=== PATIENT | female | born 1990 | race Caucasian/White ===

== ENCOUNTER 2016-06-06 13:34 | Outpatient (CLI) | payer MEDICAID | END 2016-06-06 13:35 | disposition home or self-care (01) | DX: Z20.2 Contact with and (suspected) exposure to infections with a predominantly sexual mode of transmission (principal) ==

== ENCOUNTER 2016-06-09 12:15 | Outpatient (CLI) | payer MEDICAID | END 2016-06-09 12:16 | disposition home or self-care (01) | DX: Z20.2 Contact with and (suspected) exposure to infections with a predominantly sexual mode of transmission (principal) ==

== ENCOUNTER 2016-11-15 05:43 | Emergency (ER) | payer MEDICAID ==
[2016-11-15 05:53] VITALS: BP 118/70
--- NOTE | 2016-11-15 06:46 | ED Physician Documentation ---
PD HPI FEMALE - Stated complaint Stated Complaint: RECTAL PAIN - Chief complaint Chief Complaint: General - History obtained from History obtained from: Patient - History of Present Illness Timing - onset: How many days ago (2) Timing - details: Gradual onset, Still present Associated symptoms: Other (rectal pain, rectal itching) Similar symptoms before: Has not had sx before Recently seen: Not recently seen - Additional information Additional information: Patient is a 26 year old female with no significant past medical history who is presenting to the emergency department for rectal pain and itching. Patient states that it has been going on for the last few days. Patient also reports that she has had some intermittent diarrhea with it. Patient denies any anal intercourse or anal discharge. Review of Systems Constitutional: denies: Fever, Chills Eyes: reports: Reviewed and negative Ears: reports: Reviewed and negative Nose: reports: Reviewed and negative Throat: reports: Reviewed and negative Cardiac: denies: Chest pain / pressure GI: reports: Diarrhea, Other (rectal pain). denies: Abdominal Pain, Nausea, Vomiting, Constipation : denies: Dysuria, Frequency, Hesitancy Skin: denies: Rash, Lesions Musculoskeletal: denies: Neck pain, Back pain, Extremity pain Neurologic: denies: Generalized weakness, Focal weakness Immunocompromised: denies: Immunocompromised PD PAST MEDICAL HISTORY - Past Medical History Past Medical History: Yes Cardiovascular: None Respiratory: Asthma Neuro: None Endocrine/Autoimmune: None GI: None [employer]OPS: None : None HEENT: None Psych: Depression Musculoskeletal: None Derm: None - Past Surgical History Past Surgical History: No - Present Medications Home Medications: Ambulatory Orders Medication Instructions Recorded Confirmed Control 01/05/15 01/05/15 Amoxicillin 500 mg PO TID 10 Days capsule 06/23/15 Hydroxzine 06/23/15 Melatonin 06/23/15 predniSONE [Deltasone] 40 mg PO DAILY 4 Days tablet 07/01/15 Mebendazole [Emverm] 100 mg PO DAILY #2 tab.chew 11/15/16 - Allergies Allergies/Adverse Reactions: Allergies Allergy/AdvReac Type Severity Reaction Status Date / Time amoxicillin Allergy Rash Verified 11/15/16 05:52 - Social History Does the pt smoke?: Yes Smoking Status: Current every day smoker Does the pt drink ETOH?: Yes Does the pt have substance abuse?: Yes - Immunizations Immunizations are current?: Yes - POLST Patient has POLST: No PD ED PE NORMAL - Vitals Vital signs reviewed: Yes - General General: Alert and oriented X 3, No acute distress - HEENT HEENT: Atraumatic, PERRL, Pharynx benign - Neck Neck: Supple, no meningeal sign, No JVD - Cardiac Cardiac: RRR, No murmur - Respiratory Respiratory: No respiratory distress - Abdomen Abdomen: Soft, Non tender, Non distended, Other (normal rectal exam) - Derm Derm: Normal color, Warm and dry, No rash - Extremities Extremities: No deformity - Neuro Neuro: Alert and oriented X 3, No motor deficit, No sensory deficit - Psych Psych: Normal mood, Normal affect Results - Vitals Vitals: Vital Signs - 24 hr 11/15/16 11/15/16 05:50 06:51 Temperature 36.6 C Heart Rate 70 70 Respiratory 16 16 Rate Blood Pressure 118/70 O2 Saturation 100 99 Oxygen O2 Source Room air PD MEDICAL DECISION MAKING - ED course Complexity details: reviewed old records, re-evaluated patient, considered differential, d/w patient ED course: Patient was seen and examined at bedside. Patient was well appearing and in no acute distress. Patient's physical was within normal limits. there were no worms appreciated at this time, but patient was covered. Patient required no further work up and was stable for discharge with outpatient follow up. Departure - Departure Disposition: 01 Home, Self Care Clinical Impression: Anal or rectal pain Condition: Good Instructions: ED Enterobiasis Follow-Up: Codi Sinclair ARNP [Primary Care Provider] - Within 1 week Prescriptions: Mebendazole [Emverm] 100 mg PO DAILY #2 tab.chew Comments: Your exam was normal today. No hemorroids were appreciated but you might have irritation from frequent trips to the bathroom. I am also giving you a prescription for pinworms which only come out at night. You will take the first dose today, and the second dose in two weeks. You should follow up with your pmd if your symptoms persist. Discharge Date/Time: 11/15/16 06:52
== END 2016-11-15 06:52 | disposition home or self-care (01) ==
LOC: ED 05:43
DX: K62.89 Other specified diseases of anus and rectum (principal); L29.0 Pruritus ani; F17.200 Nicotine dependence, unspecified, uncomplicated
CPT/HCPCS: 99283

== ENCOUNTER 2017-01-20 15:07 | Outpatient (CLI) | payer MEDICAID ==
[2017-01-21 11:02] LABS: TEST RESULT REPORT
== END 2017-01-20 15:08 | disposition home or self-care (01) ==
LOC: LAB.N 15:07
PROVIDERS: ATTEND Nurse Practitioner Gerontology
DX: N89.8 Other specified noninflammatory disorders of vagina (principal)
CPT/HCPCS: 36415; 81599; 86592; 87389; 87491; 87591

== ENCOUNTER 2017-03-22 12:47 | Emergency (ER) | payer MEDICAID ==
[2017-03-22] MEDS ORDERED: LIDOCAINE PATCH 5% TOP STA (13:20)
[2017-03-22] MEDS ORDERED: guaiFENesin/DEXTROMETHORPHAN 10 ML UDC PO STA (13:31)
--- NOTE | 2017-03-22 13:55 | ED Physician Documentation ---
History of Present Illness - Stated complaint Stated Complaint: L RIB PX - Chief complaint Chief Complaint: General - Additonal information Additional information: hx from pt 26 y/o denies preg cough for a few days no sore l ribs no fever body aches NVD no leg swelling no travel Review of Systems Constitutional: denies: Fever, Chills, Myalgias Cardiac: reports: Chest pain / pressure Respiratory: reports: Cough GI: denies: Vomiting, Diarrhea : denies: Now EGA Musculoskeletal: denies: Extremity swelling Endocrine: denies: Easy bruising / bleeding Immunocompromised: denies: Immunocompromised PD PAST MEDICAL HISTORY - Past Medical History Past Medical History: Yes Cardiovascular: None Respiratory: Asthma Neuro: None Endocrine/Autoimmune: None 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 : None HEENT: None Psych: Depression Musculoskeletal: None Derm: None - Past Surgical History Past Surgical History: No - Present Medications Home Medications: Ambulatory Orders Medication Instructions Recorded Confirmed Citalopram [CeleXA] 10 mg PO ONCE 12/15/16 03/22/17 buPROPion [Wellbutrin Sr] 100 mg PO BID 12/15/16 12/15/16 Benzonatate [Tessalon] 100 mg PO TID PRN #20 capsule 03/22/17 Etonogestrel [Nexplanon] 68 mg 03/22/17 Ibuprofen [Motrin] 400 mg PO Q6H PRN #20 tablet 03/22/17 Lidocaine Patch 5% [Lidoderm Patch] 1 each TOP DAILY PRN #10 patch 03/22/17 guaiFENesin/DEXTROMETHORPHAN 10 ml PO Q6H PRN #120 ml 03/22/17 [Robitussin Dm] hydrOXYzine HCl [Hydroxyzine HCl] 10 mg PO DAILY PM 03/22/17 03/22/17 - Allergies Allergies/Adverse Reactions: Allergies Allergy/AdvReac Type Severity Reaction Status Date / Time amoxicillin Allergy Rash Verified 03/22/17 13:02 - Social History Does the pt smoke?: Yes Smoking Status: Current every day smoker Does the pt drink ETOH?: Yes Does the pt have substance abuse?: Yes - Immunizations Immunizations are current?: Yes - POLST Patient has POLST: No PD ED PE NORMAL - Vitals Vital signs reviewed: Yes - Neck Neck: Supple, no meningeal sign - Cardiac Cardiac: RRR - Respiratory Respiratory: No respiratory distress, Clear bilaterally, Other (TTP lateral low L ribs) - Abdomen Abdomen: Soft, Non tender - Extremities Extremities: No edema, No calf tenderness / cord - Neuro Neuro: Alert and oriented X 3 Results - Vitals Vitals: Vital Signs - 24 hr 03/22/17 03/22/17 13:00 15:00 Temperature 37.2 C Heart Rate 101 H 68 Respiratory 18 16 Rate Blood Pressure 106/67 93/56 L O2 Saturation 98 100 Oxygen O2 Source Room air - Labs Labs: Laboratory Tests 03/22/17 03/22/17 14:38 14:38 D-Dimer < 200.0 L Creatinine 0.6 Estimated GFR (MDRD) 121 - Rads (name of study) CXR Radiology: See rad report (normal) PD MEDICAL DECISION MAKING - ED course ED course: CXR neg prob just chest wall strain from couhg but smoker on nexplanon and slightly tachy - will have to consider PE - given that she also has cough and cold sx and thus a resasonable al dx feel if d dimer neg can consider PE ruled out - will get d dimer Departure - Departure Disposition: 01 Home, Self Care Clinical Impression: Chest wall pain URI (upper respiratory infection) Qualifiers: URI type: unspecified viral URI Qualified Code(s): J06.9 - Acute upper respiratory infection, unspecified Condition: Good Instructions: ED Strain Chest Wall, ED Upper Resp Infec No Abx Tx Follow-Up: Codi Sinclair, PLUSH BRUSHER [Primary Care Provider] - Prescriptions: Benzonatate [Tessalon] 100 mg PO TID PRN #20 capsule PRN Reason: to ease cough guaiFENesin/DEXTROMETHORPHAN [Robitussin Dm] 10 ml PO Q6H PRN #120 ml PRN Reason: Cough Ibuprofen [Motrin] 400 mg PO Q6H PRN #20 tablet PRN Reason: Pain Lidocaine Patch 5% [Lidoderm Patch] 1 each TOP DAILY PRN #10 patch PRN Reason: Pain Comments: The xray did not show pneumonia, a collapsed lung, or any broken ribs The blood tests do not indicate a blood clot in your lungs. I think you have a viral respiratory infection and have strained your chest wall I think it is safe for you to go home. I have prescribed lidocaine patches and motrin for the pain and also medications to ease the cough so you do not aggravate the pain Please stop smoking Forms: Activity restrictions
[2017-03-22] MEDS ORDERED: ACETAMINOPHEN 325 MG TABLET PO STA (14:21)
[2017-03-22] MEDS ORDERED: IBUPROFEN 400 MG TABLET PO STA (14:21)
--- NOTE | 2017-03-22 14:29 | XRAY Report ---
EXAM: CHEST RADIOGRAPHY EXAM DATE: 03/22/2017 02:08 PM. CLINICAL HISTORY: Cough left chest pain. COMPARISON: 01/05/2015. TECHNIQUE: 2 views. FINDINGS: Lungs/Pleura: No focal opacities evident. No pleural effusion. No pneumothorax. Normal volumes. Mediastinum: Heart and mediastinal contours are normal. Other: None. IMPRESSION: Normal 2-view chest radiography. [facility] Referring Provider Line: [phone] SITE ID: [id number]
--- NOTE | 2017-03-22 14:29 | XRAY Preliminary Report ---
Exam: XR CHEST 2 VIEW X-RAY IMPRESSION: Normal 2-view chest radiography. [facility] SITE ID: [id number]
[2017-03-22 14:56] LABS: CREATININE 0.6 mg/dL (0.4-1.0)
[2017-03-22 15:04] VITALS: BP 93/56
[2017-03-22 15:15] LABS: HCG,QUALITATIVE BLOOD NEGATIVE
== END 2017-03-22 15:29 | disposition home or self-care (01) ==
LOC: ED 12:47
DX: J06.9 Acute upper respiratory infection, unspecified (principal); B97.89 Other viral agents as the cause of diseases classified elsewhere; R07.89 Other chest pain; J45.909 Unspecified asthma, uncomplicated; F17.200 Nicotine dependence, unspecified, uncomplicated
CPT/HCPCS: 36415; 71046; 82565; 84703; 85379; 99283; A9270

== ENCOUNTER 2017-05-22 08:00 | Outpatient (CLI) | payer MEDICAID ==
[2017-05-22 19:02] LABS: BASOPHILS % (AUTO) 0.5 %; EOSINOPHILS % (AUTO) 0.1 %; HGB - HEMOGLOBIN 12.1 g/dL (12.0-16.0); LYMPHOCYTES # (AUTO) 1.3 10^3/uL (1.5-3.5); LYMPHOCYTES % (AUTO) 13.4 %; MEAN CORPUSCULAR HEMOGLOBIN 27.5 pg (27.0-31.0); MEAN CORPUSCULAR HGB CONC 33.1 g/dL (32.0-36.0); MEAN CORPUSCULAR VOLUME 83.1 fL (81.0-99.0); MEAN PLATELET VOLUME 8.7 fL (7.9-10.8); MONOCYTES # (AUTO) 0.8 10^3/uL (0.0-1.0); MONOCYTES % (AUTO) 8.3 %; NEUTROPHILS # (AUTO) 7.4 10^3/uL (1.5-6.6); NEUTROPHILS % (AUTO) 77.7 %; PLT - PLATELET COUNT 237 10^3/uL (130-450); RED CELL DISTRIBUTION WIDTH 13.1 % (12.0-15.0); WHITE BLOOD COUNT 9.5 x10^3/uL (4.8-10.8)
[2017-05-24 12:31] LABS: HSV 1 IGG TYPE SPECIFIC AB <0.90 index; HSV 2 IGG TYPE SPECIFIC AB <0.90 index
== END 2017-05-22 08:01 | disposition home or self-care (01) ==
LOC: LAB.N 08:00
PROVIDERS: ATTEND Nurse Practitioner Gerontology
DX: Z11.3 Encounter for screening for infections with a predominantly sexual mode of transmission (principal)
CPT/HCPCS: 36415; 81599; 85025; 86695; 86696

== ENCOUNTER 2017-09-27 12:24 | Emergency (ER) | payer MEDICAID ==
[2017-09-27] MEDS ORDERED: CLINDAMYCIN 150 MG CAPSULE PO STA (12:49)
[2017-09-27] MEDS ORDERED: IBUPROFEN 600 MG TABLET PO STA (12:49)
--- NOTE | 2017-09-27 13:20 | XRAY Report ---
Procedure Date: 09/27/2017 Accession Number: [id number] / [id number] Procedure: XR - Hand 3 View LT CPT Code: FULL RESULT: EXAM: LEFT HAND RADIOGRAPHY EXAM DATE: 09/27/2017 01:02 PM. CLINICAL HISTORY: Dog bite, with swelling ulnar side of left hand and right fifth digit. COMPARISON: FINGER(S) RT 09/27/2017. TECHNIQUE: 3 views. FINDINGS: Bones: Normal. No fractures or bone lesions. Joints: Normal. No subluxations. Soft Tissues: There is soft tissue swelling along the ulnar aspect of the hand and dorsal to the metacarpals. No soft tissue gas or radiopaque foreign body. IMPRESSION: 1. No acute osseous abnormality of the left hand. 2. Soft tissue swelling around the ulnar aspect of the hand and dorsal to the metacarpals. No soft tissue gas or radiopaque foreign body. [facility]
--- NOTE | 2017-09-27 13:22 | XRAY Report ---
Procedure Date: 09/27/2017 Accession Number: [id number] / [id number] Procedure: XR - Finger(s) RT CPT Code: FULL RESULT: EXAM: RIGHT FIFTH DIGIT RADIOGRAPHY EXAM DATE: 09/27/2017 12:51 PM. CLINICAL HISTORY: Dog bite right little finger. COMPARISON: None. TECHNIQUE: 3 views. FINDINGS: Bones: Normal. No fracture or bone lesion. Joints: Normal. No subluxations. Soft Tissues: No focal soft tissue swelling, soft tissue gas, or radiopaque foreign body. IMPRESSION: Normal right fifth digit radiography. No acute osseous abnormality. [facility]
--- NOTE | 2017-09-27 13:34 | ED Physician Documentation ---
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 She was bitten in the left hand and the right hand, and was scratched on the right leg with a paw. Her tetanus status is up- to-date. She is uncertain of the dog's rabies status, but the dog can be observed. Review of Systems Constitutional: denies: Fever GI: denies: Nausea, Vomiting Skin: reports: Bite / sting. 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 : None HEENT: None Psych: Depression Musculoskeletal: None Derm: None - Past Surgical History Past Surgical History: No - Present Medications Home Medications: Ambulatory Orders Medication Instructions Recorded Confirmed Citalopram [CeleXA] 10 mg PO ONCE 12/15/16 03/22/17 buPROPion [Wellbutrin Sr] 100 mg PO BID 12/15/16 12/15/16 Benzonatate [Tessalon] 100 mg PO TID PRN #20 capsule 03/22/17 Etonogestrel [Nexplanon] 68 mg 03/22/17 Ibuprofen [Motrin] 400 mg PO Q6H PRN #20 tablet 03/22/17 Lidocaine Patch 5% [Lidoderm Patch] 1 each TOP DAILY PRN #10 patch 03/22/17 guaiFENesin/DEXTROMETHORPHAN 10 ml PO Q6H PRN #120 ml 03/22/17 [Robitussin Dm] hydrOXYzine HCl [Hydroxyzine HCl] 10 mg PO DAILY PM 03/22/17 03/22/17 Clindamycin HCl [Clindamycin 150MG 150 mg PO QID #20 capsule 09/27/17 CAP] HYDROcod/ACETAM 5/325 [[place] 5/325] 1 - 2 ea PO Q6H PRN #20 tablet 09/27/17 - Allergies Allergies/Adverse Reactions: Allergies Allergy/AdvReac Type Severity Reaction Status Date / Time amoxicillin Allergy Rash Verified 09/27/17 12:30 - Social History Does the pt smoke?: Yes Smoking Status: Current every day smoker Does the pt drink ETOH?: Yes Does the pt have substance abuse?: Yes - Immunizations Immunizations are current?: Yes - POLST Patient has POLST: No PD ED PE NORMAL - Vitals Vital signs reviewed: Yes (normal) - General General: Alert and oriented X 3, Well developed/nourished - HEENT HEENT: Atraumatic - Cardiac Cardiac: RRR - Respiratory Respiratory: No respiratory distress, Clear bilaterally - Abdomen Abdomen: Soft, Non tender - Derm Derm: No rash - Extremities Extremities: Other (Shallow bite meehan are noted on the ulnar side of the left hand, with associated ecchymosis and tenderness to palpation. There is a bite site also on the right little finger just distal to the DIP joint, with associated swelling and tenderness. His total neurovascular is intact. Superficial abrasions are noted on the right anterior thigh, consistent with dog paw scratching.) Results - Vitals Vitals: Oxygen O2 Source Room air - Rads (name of study) left hand xray Radiology: Prelim report reviewed, EMP read contemporaneously, See rad report ( No acute osseous abnormality of the left hand. Soft tissue swelling on the ulnar aspect of the hand and dorsal to the metacarpals. No soft tissue gas or radiopaque foreign body.) Right little finger Radiology: Prelim report reviewed, EMP read contemporaneously, See rad report ( Normal right fifth digit radiography. No acute osseous abnormality.) PD MEDICAL DECISION MAKING - ED course Complexity details: reviewed results, re-evaluated patient, considered differential, d/w patient, d/w family ED course: The patient's presentation is significant for dog bites to the left hand and to the right little finger. There are puncture wounds that are not amenable to irrigation. X-rays of the left hand and the right little finger reveal no bony abnormalities or radiopaque foreign body. Treatment in the emergency department included administration of clindamycin 300 mg orally, and ibuprofen 600 mg orally. The patient is allergic to amoxicillin, so Augmentin is not an option her in her treatment. She is being discharged with prescriptions for clindamycin and for Vicodin, 20 tablets. I discussed with her and her mother the expected course of injury, antibiotic and symptomatic treatment and outpatient follow-up, as well as potentially worrisome signs or symptoms that should prompt reevaluation in the emergency department. - Sepsis Event Vital Signs: Oxygen O2 Source Room air Departure - Departure Clinical Impression: Dog bite Qualifiers: Encounter type: initial encounter Qualified Code(s): W54.0XXA - Bitten by dog, initial encounter Condition: Stable Instructions: ED Bite Animal General Follow-Up: Codi Sinclair ARNP [Primary Care Provider] - Prescriptions: Clindamycin HCl [Clindamycin 150MG CAP] 150 mg PO QID #20 capsule HYDROcod/ACETAM 5/325 [[place] 5/325] 1 - 2 ea PO Q6H PRN #20 tablet PRN Reason: Pain Comments: Keep your left hand elevated as much of the time as possible. Take clindamycin 4 times daily as prescribed. You should eat probiotic yogurt while on antibiotic therapy. Take ibuprofen, up to 600 mg 3 times daily for its anti-inflammatory effect. You can use Vicodin as prescribed if needed for pain. Let pain be your guide to activity level. Follow up with your primary physician within 1 week. Call to schedule appointment. Return to the emergency department if you develop any sign of infection, or otherwise worsening symptoms. Discharge Date/Time: 09/27/17 13:45
[2017-09-27 13:41] VITALS: BP 103/57
== END 2017-09-27 13:45 ==
LOC: ED 12:24
DX: S61.432A Puncture wound without foreign body of left hand, initial encounter (principal); S61.236A Puncture wound without foreign body of right little finger without damage to nail, initial encounter; W54.0XXA Bitten by dog, initial encounter; F17.200 Nicotine dependence, unspecified, uncomplicated
CPT/HCPCS: 73130; 73140; 99283; A9270

== ENCOUNTER 2018-02-19 16:20 | Emergency (ER) | payer OTHER, MEDICAID ==
[2018-02-19] MEDS ORDERED: ACETAMINOPHEN 325 MG TABLET PO STA (17:18)
[2018-02-19] MEDS ORDERED: PROMETHAZINE 25 MG TABLET PO STA (17:19)
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
[2018-02-19 17:53] VITALS: BP 104/74
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
== END 2018-02-19 19:14 | disposition home or self-care (01) ==
LOC: ED 16:20
DX: S09.90XA Unspecified injury of head, initial encounter (principal); S00.81XA Abrasion of other part of head, initial encounter; R40.2412 Glasgow coma scale score 13-15, at arrival to emergency department; V43.62XA Car passenger injured in collision with other type car in traffic accident, initial encounter; F17.200 Nicotine dependence, unspecified, uncomplicated
CPT/HCPCS: 70450; 99283; A9270; Q0169